=== PATIENT | female | born 1965 ===

== ENCOUNTER 2017-09-09 15:25 | Outpatient (CLI) | payer OTHER ==
[~2017-09-09 15:25] MED LIST: NABUMETONE750 MG PO; ORPH100T PO; SYMBICORT 16010.2 GM
== END 2017-09-09 15:28 | disposition home or self-care (01) ==
LOC: MAMO-SONO 15:25
DX: N60.12 Diffuse cystic mastopathy of left breast (principal); N60.11 Diffuse cystic mastopathy of right breast; Z12.31 Encounter for screening mammogram for malignant neoplasm of breast; J20.8 Acute bronchitis due to other specified organisms; R05 Cough; Z13.220 Encounter for screening for lipoid disorders; Z13.89 Encounter for screening for other disorder; Z12.11 Encounter for screening for malignant neoplasm of colon; Z12.39 Encounter for other screening for malignant neoplasm of breast; Z11.3 Encounter for screening for infections with a predominantly sexual mode of transmission